=== PATIENT | female | born 1990 | race Hispanic/Latino ===

== ENCOUNTER 2017-07-26 22:58 | Emergency (ER) | payer OTHER ==
--- NOTE | 2017-07-26 23:39 | ED PDOC ---
HPI: Allergic Reaction Additional Complaint(s): 26yo F with PMHx PCN allergy c/o tongue fasiculations. Started metoclopramide 3 days ago for GI upset/gastritis, last dose 1230PM today, started have tongue fasiculations x2 days which have been improving. Other meds taken: tamiflu, pepcid, omeprazole, bactrim. Denies fever, chills, n/v, chest pain, SOB, dysphagia, abd pain, diarrhea, hematuria, dysuria. Tolerating solids and liquids. PCP Dr. Cartwright <Marli Hsu - Last Filed: 07/27/17 00:01> <Castro Ordonez - Last Filed: 07/27/17 00:26> Time Seen by Provider: 07/26/17 23:24 Chief Complaint (Nursing): Allergic Reaction Supervising Attending Note - Supervising Attending Note The Documented history was done by the: Physician Cross Country/Track And Field Coach, Attending Physician The documented physical exam was done by the: Physician Cross Country/Track And Field Coach, Attending Physician The documented procedures were done by the: Physician Cross Country/Track And Field Coach, Attending Physician - Attestation: I have personally seen and examined this patient.: Yes I have fully participated in the care of the patient.: Yes I have reviewed all pertinent clinical information: Yes <Castro Ordonez - Last Filed: 07/27/17 00:26> Past Medical History Reviewed: Historical Data, Nursing Documentation, Vital Signs Vital Signs: Last Vital Signs Temp 98.8 F 07/26/17 23:04 Pulse 92 H 07/26/17 23:04 Resp 07/26/17 23:04 BP 140/80 07/26/17 23:04 Pulse Ox 99 07/26/17 23:04 - Medical History PMH: No Chronic Diseases - Surgical History Surgical History: No Surg Hx - Family History Family History: States: Unknown Family Hx <Marli Hsu - Last Filed: 07/27/17 00:01> Vital Signs: Last Vital Signs Temp 98.8 F 07/26/17 23:04 Pulse 92 H 07/26/17 23:04 Resp 07/26/17 23:04 BP 140/80 07/26/17 23:04 Pulse Ox 99 07/27/17 00:02 <Castro Ordonez - Last Filed: 07/27/17 00:26> - Allergies Allergies/Adverse Reactions: Allergies Allergy/AdvReac Type Severity Reaction Status Date / Time metoclopramide [From Reglan] Allergy Mild swollen Verified 07/26/17 23:10 tongue Penicillins Allergy Mild RASH Verified 07/26/17 23:10 Review of Systems ROS Statement: Except As Marked, All Systems Reviewed And Found Negative ENT: Positive for: Other (tongue fasicullation) <Marli - Last Filed: 07/27/17 00:01> Physical Exam - Reviewed Nursing Documentation Reviewed: Yes Vital Signs Reviewed: Yes - Physical Exam Appears: Positive for: Well, Non-toxic Head Exam: Positive for: ATRAUMATIC, NORMAL INSPECTION Skin: Positive for: Warm, Dry Eye Exam: Positive for: EOMI, PERRL ENT: Positive for: Pharynx Is (patent), Other (tongue fasicullation). Negative for: Pharyngeal Erythema, Tonsillar Exudate Neck: Positive for: Normal, Painless ROM, Supple Cardiovascular/Chest: Positive for: Regular Rate, Rhythm, Chest Non Tender Respiratory: Positive for: Normal Breath Sounds. Negative for: Decreased Breath Sounds Gastrointestinal/Abdominal: Positive for: Bowel Sounds, Soft. Negative for: Tenderness Back: Positive for: Normal Inspection Extremity: Positive for: Normal ROM. Negative for: Tenderness Lymphatic: Positive for: Normal Exam. Negative for: Adenopathy Neurologic/Psych: Positive for: Alert, lacrosse coach II-XII, Oriented <Marli - Last Filed: 07/27/17 00:01> - ECG O2 Sat by Pulse Oximetry: 99 - Progress ED Course And Treament: 2340 DDx allergy metoclopramide, Akisthesia benadryl 50mg PO x1 <Marli - Last Filed: 07/27/17 00:01> - Progress Re-evaluation Time: 00:22 Condition: Re-examined, Improved <Castro Ordonez A - Last Filed: 07/27/17 00:26> Disposition - Disposition Disposition Time: 00:02 <Marli - Last Filed: 07/27/17 00:01> - Patient ED Disposition Is Patient to be Admitted: No Doctor Will See Patient In The: Office Counseled Patient/Family Regarding: Studies Performed, Diagnosis, Need For Followup - Disposition Disposition: Routine/Home Disposition Time: 00:23 <Castro Ordonez - Last Filed: 07/27/17 00:26> - Clinical Impression Clinical Impression: Medication side effect, Dystonic drug reaction - Disposition Referrals: [facility] [place] [Outside] Condition: GOOD Additional Instructions: Stop using reglan (metoclopramide) immediately. Take benadryl every 6 hours for tics. Follow up with your PCP in 2 days. Continue taking other medications as instructed. Instructions: Adverse Drug Reactions, Adult (DC), Tardive Dyskinesia
[2017-07-27 00:34] VITALS: BP 132/75; PULSE 82; RESP 16; TEMP 98.4; O2SAT 100
== END 2017-07-27 00:30 | disposition home or self-care (01) ==
LOC: EDBD 22:58 → H.ER 22:58
DX: T78.40XA Allergy, unspecified, initial encounter (principal); G24.09 Other drug induced dystonia; Z88.0 Allergy status to penicillin